=== PATIENT | female | born 1975 | race Caucasian/White ===

== ENCOUNTER 2017-05-19 14:03 | Emergency (ER) | payer BC, OTHER ==
[~2017-05-19] VITALS: Ht 172.7 cm; Wt 51.2 kg
[2017-05-19] MEDS ORDERED: DEXAMETHASONE 4 MG/ML, 1ML IVPush ONE (14:30)
[2017-05-19] MEDS ORDERED: SODIUM CHLORIDE FLUSH 10ML SYR IVF ONE (14:30)
[2017-05-19] MEDS ORDERED: HYDROmorphone 1 MG/ML, 1ML IVPush PRN (14:30)
[2017-05-19] MEDS ORDERED: AMPICILLIN/SULBACTAM 3 GM in SODIUM CHLORIDE 0.9% 100 ML IVPB ONE (14:30)
[2017-05-19] MEDS ORDERED: ONDANSETRON 2MG/ML, 2ML IVPush ONE (14:30)
[2017-05-19] MEDS ORDERED: BENZOCAINE 20% SPRAY 0.5ML ONE (14:47)
[2017-05-19] MEDS ORDERED: BENZOCAINE 20% SPRAY 0.5ML TP ONE (15:00)
[2017-05-19 16:52] VITALS: BP 136/70
== END 2017-05-19 16:54 | disposition home or self-care (01) ==
LOC: ED 14:46
DX: J36 Peritonsillar abscess (principal)
CPT/HCPCS: 10160; 96365; 96375; 99284; J0295; J1100; J1170; J2405

== ENCOUNTER 2017-06-02 11:32 | Emergency (ER) | payer BC ==
[~2017-06-02] VITALS: Ht 170.2 cm; Wt 52.2 kg
[2017-06-02] MEDS ORDERED: MULT1TAB9 PO (12:12)
[2017-06-02] MEDS ORDERED: DIPH25CA61 PO (12:12)
[2017-06-02] MEDS ORDERED: CLINDAMYCIN 150 MG CAPSULE ONE (12:24)
[2017-06-02] MEDS ORDERED: DIPH,PERTUSS(ACELL),TET VAC/PF 0.5 ML IM-VACC ONE ×2 (12:24→12:30)
[2017-06-02] MEDS ORDERED: HYDROcodone/APAP 5/325 TABLET ONE (12:24)
[2017-06-02] MEDS ORDERED: HYDROcodone/APAP 5/325 TABLET PO ONE (12:30)
[2017-06-02] MEDS ORDERED: CLINDAMYCIN 150 MG CAPSULE PO ONE (12:30)
[2017-06-02 12:49] LABS: HEMATOCRIT 42.8 % (34.6-47.8); HEMOGLOBIN 14.4 g/dL (11.7-16.4); WHITE BLOOD COUNT 10.2 x10^3/uL (3.4-10)
[2017-06-02 13:00] LABS: BLOOD UREA NITROGEN 17 mg/dL (7-18)
[2017-06-02 13:55] VITALS: BP 102/71
== END 2017-06-02 13:57 | disposition home or self-care (01) ==
LOC: ED 13:00
DX: L03.114 Cellulitis of left upper limb (principal); I80.8 Phlebitis and thrombophlebitis of other sites
CPT/HCPCS: 36415; 80048; 82040; 85025; 87040; 90471; 90715